=== PATIENT | male | born 1945 | race Caucasian/White ===

== ENCOUNTER 2022-04-01 19:41 | Emergency (ER) | payer BC ==
[2022-04-01 22:16] LABS: ANION GAP 11.6 mEq/L (7-13)
[2022-04-01] MEDS ORDERED: Amoxicillin/Clavulanate K 875-125 MG Tab PO ONE (23:20)
[2022-04-01] MEDS ORDERED: predniSONE 20 MG Tab PO ONE (23:20)
== END 2022-04-01 23:45 | disposition home or self-care (01) ==
LOC: DL.ED 19:41
DX: U07.1 COVID-19 (principal); R53.81 Other malaise
CPT/HCPCS: 36415; 71045; 80053; 81001; 82150; 83690; 83735; 83880; 84484; 85025; 87086; 87088; 87186; 87635; 93005; 99284; A9270; J7512; U0002

== ENCOUNTER 2022-04-23 14:28 | Emergency (ER) | payer MEDICARE, BC ==
[~2022-04-23 14:28] MED LIST: LORazepam 2 MG/ML SDV IVPUSH ONE
== END 2022-04-23 16:30 | disposition expired ==
LOC: DL.ED 14:28
DX: I46.9 Cardiac arrest, cause unspecified (principal)
CPT/HCPCS: 71045; 96374; 99285; J2060